=== PATIENT | female | born 1995 | race African-American/Black ===

== ENCOUNTER 2018-03-09 18:38 | Emergency (ER) | payer OTHER ==
[2018-03-09 19:00] VITALS: BP 134/88
[2018-03-09] MEDS ORDERED: OXYCODONE-ACETAMINOPHEN 5-325 MG TABLET PO ONE (19:33)
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
== END 2018-03-09 19:51 | disposition home or self-care (01) ==
LOC: ER 18:38
DX: S29.012A Strain of muscle and tendon of back wall of thorax, initial encounter (principal); M54.2 Cervicalgia; M54.89 Other dorsalgia; V49.40XA Driver injured in collision with unspecified motor vehicles in traffic accident, initial encounter
CPT/HCPCS: 99283